=== PATIENT | male | born 1995 | race African-American/Black ===

== ENCOUNTER 2020-02-17 18:42 | Emergency (ER) | payer OTHER ==
[~2020-02-17] VITALS: Ht 177.8 cm; Wt 77.1 kg
[2020-02-17] MEDS ORDERED: DOXY100C37 PO (19:59)
[2020-02-17] MEDS ORDERED: cefTRIAXone 500MG VIAL (J0696 PER 250MG) IM ONE (20:00)
[2020-02-17] MEDS ORDERED: LIDOCAINE 1% SDV 5ML VIAL DILUENT ONE (20:00)
[2020-02-17] MEDS ORDERED: DOXYCYCLINE HYCLATE 100MG TABLET PO ONE (20:00)
[2020-02-17 20:11] VITALS: BP 140/83
[2020-02-17 21:33] LABS: CHLAMYDIA DNA AMPLIFICATION POSITIVE (NEGATIVE); GC DNA AMPLIFICATION NEGATIVE (NEGATIVE)
== END 2020-02-17 20:18 | disposition home or self-care (01) ==
LOC: M ED 18:42
DX: A56.8 Sexually transmitted chlamydial infection of other sites (principal)
CPT/HCPCS: 81001; 87491; 87591; 96372; 99283; J0696

== ENCOUNTER 2020-09-13 13:30 | Emergency (ER) | payer OTHER ==
[~2020-09-13] VITALS: Ht 157.5 cm; Wt 75.4 kg
[~2020-09-13 13:30] MED LIST: DOXY1CAP62 PO
[2020-09-13 14:44] LABS: RSV AMPLIFICATION NEGATIVE (NEGATIVE)
--- NOTE | 2020-09-13 16:13 | REP ---
INDICATION: Coronavirus workup. COMPARISON: None TECHNIQUE: Portable AP chest with the patient upright. FINDINGS: The lung gaytan are clear. Cardiac size is normal. The lala, mediastinum and skeletal structures are unremarkable. IMPRESSION: Essentially negative portable chest <Electronically signed by Ranulfo Barger > 09/13/20 [id number]
[2020-09-13 16:43] LABS: BASO % 0.8 % (0.0-1.0); EOS % 0.6 % (0.0-3.0); HEMATOCRIT 44.9 % (42.0-52.0); HEMOGLOBIN 14.3 g/dl (13.5-17.5); LYMPH # 0.4 10^3/uL (1.5-5.0); MEAN CORPUSCULAR HEMOGLOBIN 27.2 pg (27.0-33.0); MEAN CORPUSCULAR HGB CONC 31.8 g/dl (32.0-36.5); MEAN CORPUSCULAR VOLUME 85.5 fl (80.0-96.0); MONO # 0.8 10^3/uL (0.0-0.8); MONO % 22.6 % (2.0-8.0); NEUTROPHILS # 2.4 10^3/uL (1.5-8.5); PLATELET COUNT, AUTOMATED 215 10^3/uL (150-450); RED BLOOD COUNT 5.25 10^6/uL (4.30-6.10); WHITE BLOOD COUNT 3.6 10^3/uL (4.0-10.0)
[2020-09-13 17:31] LABS: ALBUMIN 4.2 GM/DL (3.2-5.2); ALT/SGPT 32 U/L (12-78); BILIRUBIN,TOTAL 0.4 MG/DL (0.2-1.0); BLOOD UREA NITROGEN 10 MG/DL (7-18); CALCIUM LEVEL 8.8 MG/DL (8.5-10.1); CARBON DIOXIDE LEVEL 28 MEQ/L (21-32); CHLORIDE LEVEL 103 MEQ/L (98-107); CK-MB VALUE MASS 1.4 NG/ML (<3.6); CPK CREATINE PHOSPHOKINASE 501 U/L (39-308); CREATININE FOR GFR 0.96 MG/DL (0.70-1.30); GLOMERULAR FILTRATION RATE > 60.0 (>60); GLUCOSE, FASTING 85 MG/DL (70-100); MB/CK RELATIVE INDEX 0.28 (< OR =4); SODIUM LEVEL 137 MEQ/L (136-145); TOTAL PROTEIN 7.3 GM/DL (6.4-8.2); TROPONIN I < 0.02 NG/ML (< 0.10)
[2020-09-13] MEDS ORDERED: PROAAER10 INH (17:54)
[2020-09-13 17:57] VITALS: O2SAT 97
[2020-09-13] MEDS ORDERED: ACETAMINOPHEN 500 MG TAB PO ONE (18:35)
[2020-09-13 18:42] VITALS: BP 126/78
--- NOTE | 2020-09-13 20:32 | ECGEPIP ---
[facility] - ED Test Date: 2020-09-13 Pat Name: NICOLÁS SINGH Department: Room: - Gender: Male [employer] Consultant: : [id number] Requested By: HOLLY Caro PA-C Order Number: [id number] Reading MD: Anna Dooley Measurements Intervals [place] Rate: 73 P: 58 VT: 184 QRS: 50 QRSD: 66 T: 40 QT: 358 QTc: 394 Interpretive Statements Normal sinus rhythm No prior Electronically Signed on 09-13-2020 20:32:16 EDT by Anna Dooley
== END 2020-09-13 19:05 | disposition home or self-care (01) ==
LOC: M ED 13:30
DX: U07.1 COVID-19 (principal); R51.9 Headache, unspecified; J06.9 Acute upper respiratory infection, unspecified